=== PATIENT | female | born 2000 | race Caucasian/White ===

== ENCOUNTER 2024-05-10 13:33 | Emergency (ER) | payer MEDICAID ==
[~2024-05-10] VITALS: Ht 162.6 cm; Wt 72.6 kg
[2024-05-10 13:48] VITALS: BP_SYST 113; PULSE 70; RESP 18; TEMP 98.3; O2SAT 98
[2024-05-10 15:09] VITALS: BP_SYST 113; PULSE 70; RESP 18; TEMP 98.3; O2SAT 98
== END 2024-05-10 15:11 | disposition home or self-care (01) ==
LOC: SED 13:33
DX: S93.402A Sprain of unspecified ligament of left ankle, initial encounter (principal); S70.12XA Contusion of left thigh, initial encounter; S80.812A Abrasion, left lower leg, initial encounter; E10.9 Type 1 diabetes mellitus without complications; V28.01XA Electric (assisted) bicycle driver injured in noncollision transport accident in nontraffic accident, initial encounter; Y93.89 Activity, other specified; Y92.89 Other specified places as the place of occurrence of the external cause; Y99.8 Other external cause status
CPT/HCPCS: 99283